=== PATIENT | female | born 1970 | race Two or more races ===

== ENCOUNTER 2019-06-25 10:03 | Outpatient (CLI) | payer OTHER ==
[~2019-06-25] VITALS: Ht 152.4 cm; Wt 88.9 kg
== END 2019-06-25 14:44 | disposition home or self-care (01) ==
LOC: OFIC 805 10:03
DX: J32.8 Other chronic sinusitis (principal); J31.0 Chronic rhinitis; H61.23 Impacted cerumen, bilateral; H69.83 Other specified disorders of Eustachian tube, bilateral